=== PATIENT | male | born 1990 | race African-American/Black ===

== ENCOUNTER 2025-03-11 23:07 | Emergency (ER) | payer SELFPAY | END 2025-03-12 00:35 | disposition home or self-care (01) | LOC: NAV ERS 23:07 | DX: M25.511 Pain in right shoulder (principal); Z87.891 Personal history of nicotine dependence; X58.XXXA Exposure to other specified factors, initial encounter; Y93.H9 Activity, other involving exterior property and land maintenance, building and construction | CPT/HCPCS: 96372; 99283; J1885 ==